=== PATIENT | male | born 1990 | race Caucasian/White ===

== ENCOUNTER 2017-09-01 04:34 | Emergency (ER) | payer MEDICAID ==
[2017-09-01 04:44] VITALS: BP 162/85
--- NOTE | 2017-09-01 05:44 | EDM.PDOC ---
ED HPI GENERAL MEDICAL PROBLEM - General Chief Complaint: ENT Problem Stated Complaint: SWOLLEN THROAT Time Seen by Provider: 09/01/17 05:31 Source of Information: Reports: Patient History Limitations: Reports: No Limitations - History of Present Illness INITIAL COMMENTS - FREE TEXT/NARRATIVE: This gentleman comes in complaining of a sore throat. Began at about 2 AM. His said his voice was very muffled. His uvula was very swollen at the time and it's gone back to normal now. His voice is back to normal. He had a fever lasting about 12 hours which was 2 days ago but no fever now. He's worried that he may have strep and might pass it onto his family throat Pain Score (Numeric/FACES): 3 - Related Data Allergies Allergy/AdvReac Type Severity Reaction Status Date / Time No Known Allergies Allergy Verified 09/01/17 04:43 Home Meds: Home Meds Ibuprofen 400 mg PO TID PRN 09/01/17 [History] Past Medical History - Past Health History Medical/Surgical History: Denies Medical/Surgical History Social & Family History - Tobacco Use Smoking Status *Q: Never Smoker - Alcohol Use Days Per Week of Alcohol Use: 3 Number of Drinks Per Day: 2 Total Drinks Per Week: 6 - Recreational Drug Use Recreational Drug Use: No ED ROS ENT - Review of Systems Review Of Systems: See Below Constitutional: Reports: No Symptoms HEENT: Reports: Throat Pain Respiratory: Reports: No Symptoms Cardiovascular: Reports: No Symptoms Endocrine: Reports: No Symptoms GI/Abdominal: Reports: No Symptoms : Reports: No Symptoms Musculoskeletal: Reports: No Symptoms Skin: Reports: No Symptoms ED EXAM, ENT - Physical Exam Exam: See Below Exam Limited By: No Limitations General Appearance: Alert, WD/WN Eye Exam: Bilateral Eye: Normal Inspection Mouth/Throat: Uvular Edema (Very slight). No: Hoarse Voice, Muffled Voice, Peritonsillar Mass, Pharyngeal Erythema, Uvular Deviation Head: Atraumatic Respiratory/Chest: Lungs Clear Cardiovascular: Regular Rate, Rhythm, No Murmur Neurological: Alert Skin: Warm, Dry Course - Vital Signs Last Recorded V/S: Last Vital Signs Temp 36.4 C 09/01/17 04:40 Pulse 84 09/01/17 04:40 Resp 16 09/01/17 04:40 BP 162/85 H 09/01/17 04:40 Pulse Ox 97 10/29/17 04:40 - Orders/Labs/Meds Orders: Active Orders 24 hr Category Date Time Status CULTURE STREP A CONFIRMATION [RM] Stat Lab 09/01/17 04:49 Results STREP SCRN A RAPID W CULT CONF [RM] Stat Lab 09/01/17 04:49 Results Departure - Departure Time of Disposition: 05:42 Disposition: Home, Self-Care 01 Condition: Fair Clinical Impression: Viral pharyngitis - Discharge Information Referrals: PCP,None [Primary Care Provider] - Additional Instructions: You have a viral sore throat. This is probably one of the same viruses that causes cold like symptoms and other respiratory illnesses. It's no doubt contagious and can be passed on to any of your family members. Tylenol or ibuprofen is helpful. The corticosteroid methylprednisolone or Medrol Dosepak will help with the swelling and inflammation. If you feel like you're getting worse than return to the ER. - My Orders Last 24 Hours: My Active Orders 09/01/17 04:49 CULTURE STREP A CONFIRMATION [RM] Stat STREP SCRN A RAPID W CULT CONF [] Stat - Assessment/Plan Last 24 Hours: My Active Orders 09/01/17 04:49 CULTURE STREP A CONFIRMATION [RM] Stat STREP SCRN A RAPID W CULT CONF [] Stat
== END 2017-09-01 05:56 | disposition home or self-care (01) ==
LOC: JP.ED 04:34
DX: J02.8 Acute pharyngitis due to other specified organisms (principal); B97.89 Other viral agents as the cause of diseases classified elsewhere
CPT/HCPCS: 87081; 87430; 99283